=== PATIENT | male | born 1960 | race Caucasian/White ===

== ENCOUNTER 2017-09-02 16:26 | Emergency (ER) | payer BC ==
[2017-09-02 18:29] LABS: Hematocrit 32.5 % (42.0-52.0); Hemoglobin 10.7 gm/dL (13.5-18.0); Mean Cell Volume 94.5 fl (78-100); Mean Corpuscular Hemoglobin 31.1 pg (27-31); Mean Corpuscular Hgb Conc 32.9 g/dl (32-36); Mean Platelet Volume 9.7 fl (6.0-9.5); Neutrophil # 6.2 K/mm3 (1.3-6.0); Neutrophil % 67.4 % (42-75.0); Platelet Count 361 K/mm3 (150-450); Red Blood Count 3.44 M/mm3 (4.7-6.0); Red Cell Distribution Width 13.6 % (11.5-14.0); White Blood Count 9.2 K/mm3 (4.0-10.5)
[2017-09-02 18:44] LABS: Urine Bilirubin Negative (NEGATIVE); Urine Blood Negative /ul (NEGATIVE); Urine Ketone Negative (NEGATIVE); Urine Nitrite Negative (NEGATIVE); Urine Protein Negative (NEGATIVE); Urine Urobilinogen Normal (NORMAL)
[2017-09-02 18:52] LABS: Anion Gap 21.4 mmol/L (6.8-13.8); BUN/Creatinine Ratio 10.1 (9.0-21.6); Bilirubin, Total 0.3 mg/dL (0.0-1.1); Ca. Corrected For Albumin 8.5 mg/dL (8.4-10.2); Calcium * 8.8 mg/dL (7.9-10.9); Carbon Dioxide 19.6 mmol/L (24-32.6); Total Protein 8.1 gm/dL (6.2-8.2)
[2017-09-02 18:53] LABS: Cocaine Ur Negative (NEGATIVE); Urine Barbiturate Negative (NEGATIVE); Urine Benzodiazepines Negative (NEGATIVE); Urine Opiates Negative (NEGATIVE); Urine PCP Negative (NEGATIVE); Urine THC Negative (NEGATIVE)
[2017-09-02 19:05] LABS: Urine Appearance Clear; Urine Color Yellow; Urine RBC None Seen /hpf (0-5)
[2017-09-02 19:06] LABS: Urine Bacteria 1+
[2017-09-02 21:17] VITALS: BP 142/87
--- NOTE | 2017-09-02 22:00 | ERNOTE ---
ER Male HPI Date of Service: 09/02/17 Stated Complaint: ABNORMAL LABS Time Seen by Provider: 09/02/17 18:14 Source: patient Exam Limitations: no limitations Immunizations: IMMUNIZATION HX Immunizations Up to Date Yes History of Influenza Vaccine No Hx Pneumococcal Vaccination No Allergies/Adverse Reactions: Allergies Sulfa (Sulfonamide Antibiotics) Allergy (Mild, Verified 03/15/15 07:25) MAKES HIM ILL Home Medications: HOME MEDICATIONS NK [No Home Medication] 02/28/15 [Last Taken Unknown] - History of Present Illness Narrative: patient present to the ER for abnormal labs. he was instructed by his PCP and GI doctor to go directly to the ED r/t elevated kidney function test. patient states he has felt poorly since December and saw a Gi specialist today for prep lab work for a colonoscopy. Date (Duration): 09/02/17 Timing: Present: unsure Review of Systems - Review of Systems Constitutional: Present: See HPI, fatigue, decreased activity level EYE: Present: no symptoms reported ENT: Present: no symptoms reported Respiratory: Present: no symptoms reported Cardiology: Present: no symptoms reported Gastrointestinal/Abdominal: Present: See HPI, eating less, drinking less Genitourinary: Present: no symptoms reported Musculoskeletal: Present: no symptoms reported Skin: Present: no symptoms reported Neurological: Present: no symptoms reported Endocrine: Present: no symptoms reported Hematologic/Lymphatic: Present: no symptoms reported Psych: Present: no symptoms reported All Other Systems: All systems neg except as marked - Patient's Past Medical History Patient History - Medical: No pertinent hx Patient History - Cardiac/Respiratory: No pertinent hx Patient History - Cancer: No Hx of Cancer Patient History - Surgical Procedures: EGD Patient History - Other: None - Social History Living Situations: home Abuse History: No History of abuse Psych History: No pertinent hx Smoking Status: Current every day smoker Have you smoked in the past 12 months: Yes Alcohol Use: occasionally Drug Use: none - Immunizations Immunizations Up to Date: Yes Hx Pneumococcal Vaccination: No History of Influenza Vaccine: No Physical Exam - Physical Exam Narrative: states he just feels rundown and has some low back pain from time to time General Appearance: Present: wd/wn, alert, no apparent distress Head Exam: Present: normal inspection, no evidence of injury Eye Exam: Normal inspection: bilateral, PERRL: bilateral, EOMI: bilateral Ears, Nose, Throat: Present: normal ENT inspection, normal pharynx Neck: Present: normal inspection, nontender, full range of motion Respiratory: Present: no respiratory distress, normal breath sounds, no accessory muscle use, chest nontender, lungs clear Cardiovascular/Chest: Present: regular rate, rhythm, no murmur, normal peripheral pulses Gastrointestinal/Abdominal: Present: normal bowel sounds, nontender, soft Back Exam: Present: normal inspection, normal range of motion, no CVA tenderness , no vertebral tenderness Extremity Exam: Present: normal inspection, non-tender, normal range of motion, no edema Neurological Exam: Present: alert, oriented, normal mood/affect, no motor/ sensory deficits Skin Exam: Present: normal color, warm/dry Lymphatic Exam: Present: no adenopathy ED Progress - Results and Orders Patient's Lab Results:: I have reviewed the patient's lab results. 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 Vital Signs: Vital Signs 09/02/17 09/02/17 09/02/17 16:38 17:55 18:30 Temperature 37.1 C 37.2 C Pulse Rate 92 85 86 Respiratory 16 16 16 Rate Blood Pressure 170/102 141/90 159/90 O2 Sat by Pulse 97 98 98 Oximetry 09/02/17 09/02/17 09/02/17 19:58 20:10 20:30 Temperature 37.1 C Pulse Rate 82 92 82 Respiratory 18 16 16 Rate Blood Pressure 177/90 151/98 143/95 O2 Sat by Pulse 99 100 100 Oximetry 09/02/17 20:51 Temperature Pulse Rate 92 Respiratory 18 Rate Blood Pressure 142/87 O2 Sat by Pulse 99 Oximetry - EKG EKG: NSR EKG read: Reviewed by me - Progress/Reassessment Chief Complaint: Genitourinary Problem Progress:: Unchanged Plan - Plan Plan: patient present to [facility] for ARF, electrolyte abnormalities. patient accepted to [facility] with nephrology consult. Patient transferred via EMS. Departure Clinical Impression: Acute renal failure (ARF) Qualifiers: Acute renal failure type: unspecified Qualified Code(s): N17.9 - Acute kidney failure, unspecified - Departure Disposition: Other health care facility Condition: Good
== END 2017-09-02 21:00 | disposition short-term general hospital (02) ==
LOC: ER 16:26
DX: N17.9 Acute kidney failure, unspecified (principal); F17.200 Nicotine dependence, unspecified, uncomplicated